=== PATIENT | male | born 1975 | race Two or more races ===

== ENCOUNTER 2017-11-15 13:54 | Inpatient (IN) | payer MEDICARE, MEDICAID ==
[~2017-11-15] VITALS: Ht 175.3 cm; Wt 107.0 kg
[2017-11-15 14:57] LABS: Basophils # (auto) 0.1 uL; Basophils % (auto) 0.4 % (0.0-2.0); Eosinophils # (auto) 0.2 uL; Eosinophils % (auto) 1.7 % (0.0-7.0); Hematocrit 27.3 % (41.0-53.0); Hemoglobin 9.6 g/dL (13.5-17.5); Lymphocytes # (auto) 1.2 uL; Lymphocytes % (auto) 9.7 % (10.0-50.0); Mean Corpuscular Hemoglobin 33.7 pg (28.0-32.0); Mean Corpuscular Volume 96.2 fL (80.0-100.0); Monocytes % (auto) 7.8 % (0.0-12.0); Neutrophils # (auto) 10.2 uL; Neutrophils % (auto) 80.4 % (37.0-80.0); Platelet Count (auto) 172 10^3/uL (140-450); Red Blood Cells 2.83 10^6/uL (4.5-5.90); White Blood Cell 12.7 10^3/uL (4.4-10.8)
[2017-11-15 15:11] LABS: Albumin 3.4 g/dL (3.4-5.0); Calcium 7.8 mg/dL (8.5-10.1); INR 0.93 (0.9-1.15); Partial Thromboplastin Time 24.1 sec (23.78-33.04); Potassium 5.2 mmol/L (3.5-5.1)
[2017-11-15 15:19] LABS: Bilirubin, Total 0.4 mg/dL (0.2-1.0)
[2017-11-15] MEDS ORDERED: cloNIDine HCL 0.1 MG TAB PO ONE (15:45)
[2017-11-15] MEDS ORDERED: DEXTROSE (50%) 50ML SYRG IV PRN (16:00)
[2017-11-15] MEDS ORDERED: cloNIDine HCL 0.1 MG TAB PO PRN (16:00)
[2017-11-15] MEDS ORDERED: DIPHENOXYLATE W/ATROPINE 2.5 MG TAB PO PRN (16:00)
[2017-11-15] MEDS ORDERED: ACETAMINOPHEN/CODEINE#3 (300/30mg) TAB PO PRN (16:00)
[2017-11-15] MEDS ORDERED: CHOLECALCIFEROL (VITD3) 1,000 UNIT TAB PO ONE (16:15)
[2017-11-15] MEDS ORDERED: SODIUM POLYSTYRENE SULF 15GM/60ML SUSP PO ONE (16:15)
[2017-11-15] MEDS ORDERED: ACETAMINOPHEN 325 MG TAB PO PRN (16:15)
[2017-11-15] MEDS ORDERED: NITROGLYCERIN 0.4 MG SL TAB SL PRN (16:15)
[2017-11-15] MEDS ORDERED: TEMAZEPAM 15 MG CAP PO PRN (16:15)
[2017-11-15] MEDS ORDERED: ONDANSETRON HCL 4 MG/2 ML VIAL IV PRN (16:15)
[2017-11-15] MEDS ORDERED: B-COMPLEX W/ C & FOLIC ACID(NEPHROVITE TAB) PO ONE (16:15)
[2017-11-15] MEDS ORDERED: NIFEdipine ER 30 MG TAB PO ONE (16:15)
[2017-11-15] MEDS ORDERED: MORPHINE SULF INJ 2 MG/ML SYRINGE 1ML IV PRN (16:15)
[2017-11-15] MEDS ORDERED: NIFE90TA30 PO (16:22)
[2017-11-15] MEDS ORDERED: DIPH2.5T73 PO (16:22)
[2017-11-15] MEDS ORDERED: LANT10002 PO (16:22)
[2017-11-15] MEDS ORDERED: ALPR0.254 PO (16:22)
[2017-11-15] MEDS ORDERED: CARV6.2551 PO (16:22)
[2017-11-15] MEDS ORDERED: SIMV-8 PO (16:22)
[2017-11-15] MEDS ORDERED: DORZ2SOL22 EACHEYE (16:23)
[2017-11-15] MEDS ORDERED: ALP15OS EACHEYE (16:23)
[2017-11-15] MEDS: ACCU-CHEK COMFORT CURVE STRIP VI SCH ×2 (17:29→22:12)
[2017-11-15] MEDS: InsuLIN REG 1unit/0.01ml Soln (100units/ml) SC SCH ×2 (17:29→22:12)
[2017-11-15] MEDS: ZINC SULFATE 220 MG CAP PO SCH (17:29)
[2017-11-15] MEDS: LANTHANUM 1000 MG PO SCH (18:55)
[2017-11-15 21:00] VITALS: BP 194/90
[2017-11-15 22:00] VITALS: BP 194/90
[2017-11-15] MEDS: DORZOLAMIDE HCL 2% OPTH(EYE) SOL 10ML EACHEYE SCH (22:07)
[2017-11-15] MEDS: TIMOLOL MALEATE 0.25 % OPTH SOL 5ML EACHEYE SCH (22:07)
[2017-11-15] MEDS: BRIMONIDINE 0.2% OPTH Soln 5ml EACHEYE SCH (22:07)
[2017-11-15] MEDS: ATORVASTATIN 20 MG TAB PO SCH (22:11)
[2017-11-15] MEDS: SODIUM CHLOR 0.9% PF (SALINE LOCK) 10ML VIAL/SYR IV SCH (22:11)
[2017-11-15] MEDS: CARVEDILOL 3.125 MG TAB PO SCH (22:11)
[2017-11-15] MEDS: FAMOTIDINE 20 MG TAB PO SCH (22:12)
[2017-11-15] MEDS: ALPRAZolam 0.25 MG TAB PO PRN (22:12)
[2017-11-15] MEDS: ASCORBIC ACID 500 MG TAB PO SCH (22:12)
[2017-11-16 05:00] VITALS: BP 140/71
[2017-11-16 05:19] LABS: Monocytes # (auto) 0.6 uL; Neutrophils # (auto) 6.5 uL; White Blood Cell 8.7 10^3/uL (4.4-10.8)
[2017-11-16 05:21] LABS: Basophils # (auto) 0.1 uL; Basophils % (auto) 0.7 % (0.0-2.0); Eosinophils # (auto) 0.2 uL; Eosinophils % (auto) 1.8 % (0.0-7.0); Hematocrit 22.3 % (41.0-53.0); Lymphocytes # (auto) 1.3 uL; Lymphocytes % (auto) 15.3 % (10.0-50.0); Mean Corpuscular Hemoglobin 34.8 pg (28.0-32.0); Mean Corpuscular Volume 96.6 fL (80.0-100.0); Monocytes % (auto) 7.1 % (0.0-12.0); Neutrophils % (auto) 75.1 % (37.0-80.0); Platelet Count (auto) 129 10^3/uL (140-450); Red Blood Cells 2.31 10^6/uL (4.5-5.90)
[2017-11-16 05:37] LABS: Albumin 2.9 g/dL (3.4-5.0); Calcium 7.4 mg/dL (8.5-10.1); Potassium 4.5 mmol/L (3.5-5.1)
[2017-11-16 05:48] LABS: BUN/Creatinine Ratio 5.4; Bilirubin, Total 0.4 mg/dL (0.2-1.0); Total Protein 6.1 g/dL (6.4-8.2)
[2017-11-16] MEDS: INSULIN LANTUS (GLARGINE) 1 /0.01ml (100units/ml) SC SCH (06:23)
[2017-11-16] MEDS: SODIUM CHLOR 0.9% PF (SALINE LOCK) 10ML VIAL/SYR IV SCH ×3 (06:23→22:07)
[2017-11-16] MEDS: BRIMONIDINE 0.2% OPTH Soln 5ml EACHEYE SCH ×3 (06:23→22:07)
[2017-11-16] MEDS: InsuLIN REG 1unit/0.01ml Soln (100units/ml) SC SCH ×4 (06:23→22:08)
[2017-11-16] MEDS: ACCU-CHEK COMFORT CURVE STRIP VI SCH ×4 (06:24→22:08)
[2017-11-16 07:27] LABS: Urine Bacteria NONE SEEN /hpf (None Seen); Urine Blood Negative /uL (Negative); Urine Specific Gravity 1.009 (1.001-1.035); Urine Sperm PRESENT /hpf (None Seen); Urine WBC 4 /hpf (0 - 3)
[2017-11-16 07:55] VITALS: BP 129/68
[2017-11-16] MEDS: LANTHANUM 1000 MG PO SCH ×3 (08:00→18:00)
[2017-11-16] MEDS: DORZOLAMIDE HCL 2% OPTH(EYE) SOL 10ML EACHEYE SCH ×2 (09:20→22:07)
[2017-11-16] MEDS: TIMOLOL MALEATE 0.25 % OPTH SOL 5ML EACHEYE SCH ×2 (09:20→22:07)
[2017-11-16] MEDS: B-COMPLEX W/ C & FOLIC ACID(NEPHROVITE TAB) PO SCH (09:21)
[2017-11-16] MEDS: ZINC SULFATE 220 MG CAP PO SCH (09:21)
[2017-11-16] MEDS: ASCORBIC ACID 500 MG TAB PO SCH ×2 (09:21→22:08)
[2017-11-16] MEDS: CHOLECALCIFEROL (VITD3) 1,000 UNIT TAB PO SCH (09:22)
[2017-11-16] MEDS: CARVEDILOL 3.125 MG TAB PO SCH ×2 (09:23→22:08)
[2017-11-16] MEDS: NIFEdipine ER 30 MG TAB PO SCH (09:26)
[2017-11-16] MEDS ORDERED: PNEUMOCOCCAL VACC POLYS 25 MCG/0.5 ML VIAL IM ONE (10:00)
[2017-11-16] MEDS ORDERED: MULTIPLE VITAMIN TAB PO SCH (10:00)
[2017-11-16 12:37] VITALS: BP 119/68
[2017-11-16 16:34] VITALS: BP 123/76
[2017-11-16 22:00] VITALS: BP 150/77
[2017-11-16] MEDS: FAMOTIDINE 20 MG TAB PO SCH (22:08)
[2017-11-16] MEDS: ATORVASTATIN 20 MG TAB PO SCH (22:08)
[2017-11-16] MEDS: ALPRAZolam 0.25 MG TAB PO PRN (22:09)
[2017-11-17 05:13] VITALS: BP 129/69
[2017-11-17 05:46] LABS: Basophils # (auto) 0.1 uL; Eosinophils # (auto) 0.2 uL; Hemoglobin 7.5 g/dL (13.5-17.5); Lymphocytes # (auto) 1.5 uL; Monocytes # (auto) 0.6 uL; Platelet Count (auto) 126 10^3/uL (140-450); White Blood Cell 7.4 10^3/uL (4.4-10.8)
[2017-11-17 05:52] LABS: Basophils % (auto) 0.8 % (0.0-2.0); Eosinophils % (auto) 2.4 % (0.0-7.0); Hematocrit 21.3 % (41.0-53.0); Lymphocytes % (auto) 20.4 % (10.0-50.0); Mean Corpuscular Hemoglobin 34.4 pg (28.0-32.0); Mean Corpuscular Hgb Conc. 35.3 g/dL (32.0-36.0); Mean Corpuscular Volume 97.3 fL (80.0-100.0); Monocytes % (auto) 8.1 % (0.0-12.0); Neutrophils % (auto) 68.3 % (37.0-80.0); Red Blood Cells 2.18 10^6/uL (4.5-5.90)
[2017-11-17] MEDS: InsuLIN REG 1unit/0.01ml Soln (100units/ml) SC SCH ×4 (06:15→22:23)
[2017-11-17] MEDS: INSULIN LANTUS (GLARGINE) 1 /0.01ml (100units/ml) SC SCH (06:16)
[2017-11-17] MEDS: ACCU-CHEK COMFORT CURVE STRIP VI SCH ×4 (06:16→22:23)
[2017-11-17] MEDS: BRIMONIDINE 0.2% OPTH Soln 5ml EACHEYE SCH ×3 (06:16→22:22)
[2017-11-17] MEDS: SODIUM CHLOR 0.9% PF (SALINE LOCK) 10ML VIAL/SYR IV SCH ×3 (06:16→22:22)
[2017-11-17 06:18] LABS: BUN/Creatinine Ratio 5.4; Calcium 7.3 mg/dL (8.5-10.1); Magnesium 2.6 mg/dL (1.6-2.6); Potassium 5.1 mmol/L (3.5-5.1)
[2017-11-17] MEDS: LANTHANUM 1000 MG PO SCH ×3 (08:00→18:00)
[2017-11-17] MEDS ORDERED: EPOETIN ALFA 10,000 UNIT/1 ML VIAL IV ONE (08:30)
[2017-11-17 09:00] VITALS: BP 133/65
[2017-11-17] MEDS: ZINC SULFATE 220 MG CAP PO SCH (10:00)
[2017-11-17] MEDS: ASCORBIC ACID 500 MG TAB PO SCH ×2 (10:00→22:23)
[2017-11-17] MEDS: CHOLECALCIFEROL (VITD3) 1,000 UNIT TAB PO SCH (10:00)
[2017-11-17] MEDS: B-COMPLEX W/ C & FOLIC ACID(NEPHROVITE TAB) PO SCH (10:27)
[2017-11-17] MEDS: NIFEdipine ER 30 MG TAB PO SCH (10:28)
[2017-11-17] MEDS: CARVEDILOL 3.125 MG TAB PO SCH ×2 (10:28→22:22)
[2017-11-17] MEDS: DORZOLAMIDE HCL 2% OPTH(EYE) SOL 10ML EACHEYE SCH ×2 (10:29→22:22)
[2017-11-17] MEDS: TIMOLOL MALEATE 0.25 % OPTH SOL 5ML EACHEYE SCH ×2 (10:29→22:22)
[2017-11-17] MEDS ORDERED: PNEUMOCOCCAL VACC POLYS 25 MCG/0.5 ML VIAL IM ONE (11:00)
[2017-11-17 13:00] VITALS: BP 150/72
[2017-11-17 13:45] LABS: Hematocrit 24.2 % (41.0-53.0); Hemoglobin 8.5 g/dL (13.5-17.5)
[2017-11-17 14:14] LABS: BUN/Creatinine Ratio 4.3; Calcium 7.9 mg/dL (8.5-10.1); Potassium 4.2 mmol/L (3.5-5.1)
[2017-11-17] MEDS ORDERED: IODIXANOL 320MG/ML 100ML BTL IV ONE (15:02)
[2017-11-17] MEDS ORDERED: LIDOCAINE 2% (LOCAL ANESTH.) PF 5ml SDV ONE (15:02)
[2017-11-17] MEDS ORDERED: MIDAZOLAM HCL 1MG/1ML-2 ML VIAL ONE (15:18)
[2017-11-17] MEDS ORDERED: HEPARIN SODIUM (PORCINE) 5000 UNITS/ML 1ML VIAL ONE (15:18)
[2017-11-17] MEDS ORDERED: fentaNYL CITRATE 100 MCG/2 ML VL ONE (15:18)
[2017-11-17 17:00] VITALS: BP 153/81
[2017-11-17 22:00] VITALS: BP 145/61
[2017-11-17] MEDS: FAMOTIDINE 20 MG TAB PO SCH (22:22)
[2017-11-17] MEDS: ATORVASTATIN 20 MG TAB PO SCH (22:22)
[2017-11-17] MEDS: ALPRAZolam 0.25 MG TAB PO PRN (22:23)
[2017-11-18 05:00] VITALS: BP 135/56
[2017-11-18] MEDS: BRIMONIDINE 0.2% OPTH Soln 5ml EACHEYE SCH (06:27)
[2017-11-18] MEDS: SODIUM CHLOR 0.9% PF (SALINE LOCK) 10ML VIAL/SYR IV SCH (06:27)
[2017-11-18] MEDS: INSULIN LANTUS (GLARGINE) 1 /0.01ml (100units/ml) SC SCH (06:28)
[2017-11-18] MEDS: ACCU-CHEK COMFORT CURVE STRIP VI SCH ×2 (06:28→11:30)
[2017-11-18] MEDS: InsuLIN REG 1unit/0.01ml Soln (100units/ml) SC SCH ×2 (06:28→12:08)
[2017-11-18] MEDS: LANTHANUM 1000 MG PO SCH ×2 (08:00→12:08)
[2017-11-18 08:46] VITALS: BP 132/75
[2017-11-18] MEDS: ZINC SULFATE 220 MG CAP PO SCH (10:00)
[2017-11-18] MEDS: B-COMPLEX W/ C & FOLIC ACID(NEPHROVITE TAB) PO SCH (10:00)
[2017-11-18] MEDS: CHOLECALCIFEROL (VITD3) 1,000 UNIT TAB PO SCH (10:01)
[2017-11-18] MEDS: ASCORBIC ACID 500 MG TAB PO SCH (10:01)
[2017-11-18] MEDS: NIFEdipine ER 30 MG TAB PO SCH (10:03)
[2017-11-18] MEDS: CARVEDILOL 3.125 MG TAB PO SCH (10:03)
[2017-11-18] MEDS: TIMOLOL MALEATE 0.25 % OPTH SOL 5ML EACHEYE SCH (10:04)
[2017-11-18] MEDS: DORZOLAMIDE HCL 2% OPTH(EYE) SOL 10ML EACHEYE SCH (10:04)
== END 2017-11-18 12:45 | disposition home or self-care (01) | DRG 314 ==
LOC: ER 13:54 → TELE 13:55 → TELE-WESTW 20:31
PROVIDERS: ADMIT Internal Medicine; ATTEND Internal Medicine
PROC: 5A1D70Z Performance of Urinary Filtration, Intermittent, Less than 6 Hours Per Day (ICD-10-PCS; principal; 2017-11-17)
PROC: B51W1ZZ Fluoroscopy of Dialysis Shunt/Fistula using Low Osmolar Contrast (ICD-10-PCS; 2017-11-17)
DX: T82.838A Hemorrhage due to vascular prosthetic devices, implants and grafts, initial encounter (principal); N18.6 End stage renal disease; I12.0 Hypertensive chronic kidney disease with stage 5 chronic kidney disease or end stage renal disease; I87.1 Compression of vein; E87.5 Hyperkalemia; E83.51 Hypocalcemia; I77.0 Arteriovenous fistula, acquired; Y84.1 Kidney dialysis as the cause of abnormal reaction of the patient, or of later complication, without mention of misadventure at the time of the procedure; D63.1 Anemia in chronic kidney disease; E11.22 Type 2 diabetes mellitus with diabetic chronic kidney disease; E66.9 Obesity, unspecified; E78.5 Hyperlipidemia, unspecified; H40.9 Unspecified glaucoma; Z99.2 Dependence on renal dialysis; Y92.89 Other specified places as the place of occurrence of the external cause; Z83.3 Family history of diabetes mellitus; Z82.49 Family history of ischemic heart disease and other diseases of the circulatory system; Z68.34 Body mass index [BMI] 34.0-34.9, adult
CPT/HCPCS: 36415; 71045; 76000; 76937; 80048; 80053; 81001; 82962; 83036; 83735; 83880; 84443; 84484; 85014; 85018; 85025; 85610; 85730; 87081; 87086; 90935; 93306; 93930; 96372; 99152; J0885; J1815; J2250; Q9967

== ENCOUNTER 2017-12-22 06:47 | Inpatient (IN) | payer MEDICARE, MEDICAID ==
[2017-12-20 11:48] LABS: Basophils # (auto) 0.1 uL; Basophils % (auto) 1.2 % (0.0-2.0); Eosinophils # (auto) 0.2 uL; Eosinophils % (auto) 2.8 % (0.0-7.0); Hematocrit 31.5 % (41.0-53.0); Hemoglobin 11.1 g/dL (13.5-17.5); Lymphocytes # (auto) 1.5 uL; Lymphocytes % (auto) 22.9 % (10.0-50.0); Mean Corpuscular Hgb Conc. 35.1 g/dL (32.0-36.0); Mean Corpuscular Volume 96.9 fL (80.0-100.0); Monocytes # (auto) 0.6 uL; Monocytes % (auto) 8.7 % (0.0-12.0); Neutrophils # (auto) 4.1 uL; Neutrophils % (auto) 64.4 % (37.0-80.0); Platelet Count (auto) 186 10^3/uL (140-450); Red Blood Cells 3.25 10^6/uL (4.5-5.90); Red Cell Distribution Width 13.5 % (11.8-14.3); White Blood Cell 6.4 10^3/uL (4.4-10.8)
[2017-12-20 12:02] LABS: Albumin 3.8 g/dL (3.4-5.0)
[2017-12-20 12:07] LABS: INR 0.96 (0.9-1.15); Partial Thromboplastin Time 27.4 sec (23.78-33.04); Prothrombin Time 10.3 sec (9.27-12.13)
[2017-12-20 12:10] LABS: BUN/Creatinine Ratio 5.1; Bilirubin, Total 0.4 mg/dL (0.2-1.0); Total Protein 7.9 g/dL (6.4-8.2)
[2017-12-20 13:43] LABS: Potassium 6.2 mmol/L (3.5-5.1)
[~2017-12-22] VITALS: Ht 175.3 cm; Wt 84.6 kg
[~2017-12-22 06:47] MED LIST: ALP15OS EACHEYE; ALPR0.254 PO; CARV6.2551 PO; DIPH2.5T73 PO; DORZ2SOL18 EACHEYE; INSDRIP SC; INSLANTI SC; LANT10002 PO; NIFE90TA30 PO; SIMV-8 PO
[2017-12-22] MEDS ORDERED: LIDOCAINE 1% HCL (LOCAL ANESTH.) INJ 20ML MDV ONE (06:57)
[2017-12-22] MEDS ORDERED: ceFAZolin 1GM/50ML 50 ML IV ONE (07:00)
[2017-12-22] MEDS ORDERED: ROCURONIUM 10MG/ML 10ML VIAL IV ONE (07:05)
[2017-12-22] MEDS ORDERED: fentaNYL CITRATE 100 MCG/2 ML VL ONE ×2 (07:05)
[2017-12-22] MEDS ORDERED: PROPOFOL 10 MG/ML 20 ML IV ONE (07:05)
[2017-12-22] MEDS ORDERED: ONDANSETRON HCL 4 MG/2 ML VIAL ONE (07:05)
[2017-12-22] MEDS ORDERED: SODIUM CHLORIDE LOCK 10 ML ONE (07:05)
[2017-12-22] MEDS ORDERED: MIDAZOLAM HCL 1MG/1ML-2 ML VIAL ONE (07:05)
[2017-12-22] MEDS ORDERED: METOCLOPRAMIDE HCL 5MG/ml INJ 2ml VIAL IV ONE (07:30)
[2017-12-22] MEDS ORDERED: ACCU-CHEK COMFORT CURVE STRIP VI ONE (07:30)
[2017-12-22 07:59] LABS: BUN/Creatinine Ratio 3.2; Calcium 8.9 mg/dL (8.5-10.1); Potassium 4.1 mmol/L (3.5-5.1)
[2017-12-22] MEDS ORDERED: ceFAZolin 1GM VL ONE (09:16)
[2017-12-22] MEDS ORDERED: LIDOCAINE 1% (LOCAL ANESTH.) PF 5ml SDV ONE (09:16)
[2017-12-22] MEDS ORDERED: HEPARIN SODIUM (PORCINE) 5000 UNITS/ML 1ML VIAL ONE ×2 (09:17→09:57)
[2017-12-22] MEDS ORDERED: BUPIVACAINE HCL 0.25% P/F 10 ML VIAL ONE (09:17)
[2017-12-22] MEDS ORDERED: CISATRACURIUM BESYLATE (2MG/ML) 5ML VIAL IV ONE (09:26)
[2017-12-22] MEDS ORDERED: GELATIN 1 SPONGE SIZE 100 TOP ONE (09:31)
[2017-12-22] MEDS ORDERED: THROMBIN (BOVINE) 5000 UNIT SOL VIAL ONE (09:32)
[2017-12-22] MEDS ORDERED: HYDROmorphone HCL 2 MG/ML VL IV PRN ×2 (11:00→14:15)
[2017-12-22] MEDS ORDERED: MORPHINE SULFATE 4 MG/ML SYR/VIAL IV PRN (11:30)
[2017-12-22] MEDS ORDERED: NITROGLYCERIN 0.4 MG SL TAB SL PRN (11:30)
[2017-12-22] MEDS: HYDROmorphone HCL 2 MG/ML VL IV PRN ×3 (11:40→12:05)
[2017-12-22] MEDS ORDERED: DEXTROSE (50%) 50ML SYRG IV PRN (14:15)
[2017-12-22] MEDS ORDERED: NIFEdipine ER 30 MG TAB PO ONE (14:15)
[2017-12-22] MEDS ORDERED: ONDANSETRON HCL 4 MG/2 ML VIAL IV PRN (14:15)
[2017-12-22] MEDS ORDERED: HYDROcodone-ACET 5/325MG TAB PO PRN (14:15)
[2017-12-22] MEDS ORDERED: ALPRAZolam 0.25 MG TAB PO PRN (14:15)
[2017-12-22 15:24] VITALS: BP 164/89
[2017-12-22] MEDS: InsuLIN REG 1unit/0.01ml Soln (100units/ml) SC SCH ×2 (17:55→22:27)
[2017-12-22] MEDS: ACCU-CHEK COMFORT CURVE STRIP VI SCH ×2 (17:56→22:27)
[2017-12-22 22:00] VITALS: BP 141/67
[2017-12-22] MEDS ORDERED: ATORVASTATIN 20 MG TAB PO SCH (22:00)
[2017-12-22] MEDS: CARVEDILOL 3.125 MG TAB PO SCH (22:26)
[2017-12-23 05:00] VITALS: BP 142/73
[2017-12-23] MEDS: ACCU-CHEK COMFORT CURVE STRIP VI SCH ×2 (06:28→11:30)
[2017-12-23] MEDS: InsuLIN REG 1unit/0.01ml Soln (100units/ml) SC SCH ×2 (06:42→11:30)
[2017-12-23 07:51] LABS: Basophils # (auto) 0.1 uL; Basophils % (auto) 1.1 % (0.0-2.0); Eosinophils # (auto) 0.2 uL; Eosinophils % (auto) 2.9 % (0.0-7.0); Hematocrit 32.7 % (41.0-53.0); Hemoglobin 11.4 g/dL (13.5-17.5); Lymphocytes # (auto) 1.4 uL; Lymphocytes % (auto) 20.9 % (10.0-50.0); Mean Corpuscular Hemoglobin 33.3 pg (28.0-32.0); Mean Corpuscular Hgb Conc. 34.7 g/dL (32.0-36.0); Monocytes # (auto) 0.6 uL; Monocytes % (auto) 8.7 % (0.0-12.0); Neutrophils # (auto) 4.4 uL; Neutrophils % (auto) 66.4 % (37.0-80.0); Platelet Count (auto) 186 10^3/uL (140-450); Red Blood Cells 3.41 10^6/uL (4.5-5.90); Red Cell Distribution Width 13.6 % (11.8-14.3); White Blood Cell 6.6 10^3/uL (4.4-10.8)
[2017-12-23 08:19] LABS: BUN/Creatinine Ratio 3.6; Calcium 8.5 mg/dL (8.5-10.1)
[2017-12-23] MEDS ORDERED: SODIUM CHL 0.9% 1000 ML BAG XX ONE (09:00)
[2017-12-23 09:36] VITALS: BP 163/76
[2017-12-23] MEDS: CARVEDILOL 3.125 MG TAB PO SCH ×2 (10:00→14:14)
[2017-12-23] MEDS: NIFEdipine ER 30 MG TAB PO SCH ×2 (10:00→12:08)
[2017-12-23 13:36] VITALS: BP 204/105
== END 2017-12-23 15:25 | disposition home or self-care (01) | DRG 252 ==
LOC: SUR 06:47 → WEST WING 06:48
PROVIDERS: ADMIT Surgery; ATTEND Internal Medicine
PROC: 3E03317 Introduction of Other Thrombolytic into Peripheral Vein, Percutaneous Approach (ICD-10-PCS; principal; 2017-12-22 09:36)
PROC: 5A1D70Z Performance of Urinary Filtration, Intermittent, Less than 6 Hours Per Day (ICD-10-PCS; 2017-12-23)
PROC: 03LY0ZZ Occlusion of Upper Artery, Open Approach (ICD-10-PCS; 2017-12-23)
DX: T82.898A Other specified complication of vascular prosthetic devices, implants and grafts, initial encounter (principal); N18.6 End stage renal disease; I12.0 Hypertensive chronic kidney disease with stage 5 chronic kidney disease or end stage renal disease; Y84.1 Kidney dialysis as the cause of abnormal reaction of the patient, or of later complication, without mention of misadventure at the time of the procedure; D64.9 Anemia, unspecified; E11.22 Type 2 diabetes mellitus with diabetic chronic kidney disease; E78.5 Hyperlipidemia, unspecified; Z99.2 Dependence on renal dialysis; Z86.79 Personal history of other diseases of the circulatory system; Y92.89 Other specified places as the place of occurrence of the external cause
CPT/HCPCS: 36415; 80048; 80053; 82962; 85025; 85610; 85730; 86850; 86900; 86901; 87081; 90935; J0690; J1642; J1815; J2001; J2250; J2405; J2704; J3490